=== PATIENT | male | born 1950 | race Asian ===

== ENCOUNTER 2023-07-03 04:46 | Day surgery (SDC) | payer OTHER ==
[2023-06-27 09:49] VITALS: BMI 27.4
[2023-07-03 12:26] VITALS: TEMP 97.2
[2023-07-03] MEDS ORDERED: PROMETHAZINE HCL 25 MG/1 ML VIAL IVPB PRN (12:51)
[2023-07-03] MEDS ORDERED: ONDANSETRON 4 MG/2 ML VIAL IVPUSH PRN (12:51)
[2023-07-03] MEDS ORDERED: LACTATED RINGERS SOLUTION 1,000 ML IV SCH (13:00)
[2023-07-03] MEDS ORDERED: PROPOFOL 20 ML ONE (14:14)
[2023-07-03] MEDS ORDERED: MIDAZOLAM HCL 2 MG/2 ML SINGLE DOSE VIAL ONE (14:14)
[2023-07-03] MEDS ORDERED: SODIUM CHLORIDE 0.9% P/F 10 ML VIAL IJ ONE (14:15)
[2023-07-03] MEDS ORDERED: LIDOCAINE HCL/PF 2% SDV 5ML VIAL ONE (14:15)
[2023-07-03] MEDS ORDERED: ceFAZolin SODIUM 1 GM VIAL ONE (14:15)
[2023-07-03] MEDS ORDERED: GLYCOPYRROLATE 0.2 MG/1 ML VIAL ONE (14:45)
[2023-07-03] MEDS ORDERED: ceFAZolin SODIUM 1 GM VIAL IVPB ONE (14:46)
[2023-07-03] MEDS ORDERED: ONDANSETRON 4 MG/2 ML VIAL ONE (14:48)
[2023-07-03] MEDS ORDERED: DEXAMETHASONE SOD PHOSPHATE 4 MG/1 ML VIAL ONE (14:48)
[2023-07-03] MEDS ORDERED: oxyCODONE HCL 5 MG TABLET ONE (17:04)
[2023-07-03] MEDS ORDERED: oxyCODONE HCL 5 MG TABLET PO ONE (17:07)
[2023-07-03 17:17] VITALS: RESP 20
[2023-07-03 17:54] VITALS: BP 130/75; PULSE 67
== END 2023-07-03 17:45 | disposition home or self-care (01) ==
LOC: JASU-SURG 04:46
PROVIDERS: ATTEND Urology
PROC: 0TJB8ZZ Inspection of Bladder, Via Natural or Artificial Opening Endoscopic (ICD-10-PCS; principal; 2023-07-03 14:00)
DX: N32.89 Other specified disorders of bladder (principal)
CPT/HCPCS: 82962; 94760